=== PATIENT | female | born 1965 | race Caucasian/White ===

== ENCOUNTER 2021-02-03 14:57 | Emergency (ER) | payer OTHER, SELFPAY ==
--- NOTE | ~2021-02-03 | XR_ITS ---
EXAMINATION: XR CHEST CLINICAL INFORMATION: [facility] COMPARISON: 07/16/2018 TECHNIQUE: Frontal view of the chest was obtained. FINDINGS: EKG leads project over the chest. No focal consolidation, pleural effusion or pneumothorax. Heart size is normal. No acute osseous abnormality. XR/XR chest 1V IMPRESSION: No acute pulmonary process.
[2021-02-03 15:35] VITALS: BP 187/99; PULSE 67; RESP 16; O2SAT 98; BMI 27.4
--- NOTE | 2021-02-03 15:40 | ECG_ITS ---
Test Reason : HIGH BOOLD PRESSURE Blood Pressure : / mmHG Vent. Rate : 065 BPM Atrial Rate : 065 BPM P-R Int : 168 ms QRS Dur : 108 ms QT Int : 408 ms P-R-T Axes : 043 013 029 degrees QTc Int : 424 ms Normal sinus rhythm Incomplete right bundle branch block Borderline ECG When compared with ECG of 16-JUL-2018 13:57, No significant change was found Referred By: Generic ED Physician Electronically Signed By:HAYLIE PARRA
--- NOTE | 2021-02-03 17:07 | ED_ITS ---
HPI - General Adult General Chief complaint: General Medical Stated complaint: HIGH BP Time Seen by Provider: 02/03/21 17:07 Source: patient Mode of arrival: ambulatory Limitations: no limitations History of Present Illness HPI narrative: 55-year-old female with below noted past medical history presenting complaint of states pain in the left lower side of the neck that is positional has been more secondary to working from home and postural on a computer all day. States hurts with certain movements and also had some radiation to the right chest area which made her concerned. States having on for past couple days. Otherwise no recent illness, travel, lower extremity pain or swelling. Onset (ago): day(s) Severity: mild Quality: aching Pain Consistency: intermittent Relieving factors: cold therapy and movement Exacerbating factors: none Treatments prior to arrival: none Related Data Previous Rx's Medication Instructions Recorded azithromycin 250 mg tablet See Rx Instructions PO .COMPLEX #6 01/13/21 tab Allergies Allergy/AdvReac Type Severity Reaction Status Date / Time SEASONAL ALLERGIES Allergy Mild ITCHY Uncoded 07/14/20 16:35 EYES, RUNNY NOSE Review of Systems Review of Systems: Constitutional: No Weight loss, No Fever, No Chills, No Night Sweats, No Fatigue, No Malaise ENT/Mouth: No Hearing loss, No Ear Pain, No Nasal Congestion, No Sinus Pain, No Hoarseness, No sore throat, No Rhinorrhea, No Swallowing Difficulty Eyes: No Eye Pain, No Swelling, No Redness, No Foreign Body, No Discharge, No Vision Changes Cardiovascular: + Chest Pain, No SOB, No Dyspnea on Exertion, No Orthopnea, No Edema, No Palpitations Respiratory: No Cough, No Sputum, No Wheezing, No Smoke Exposure, No Dyspnea Gastrointestinal: No Nausea, No Vomiting, No Diarrhea, No Constipation, No abdominal Pain, No Hematochezia, No Melena Genitourinary: No Dysuria, No Urinary Frequency, No Hematuria, No Urinary Incontinence, No Urgency, No Flank Pain, No Urinary Flow Changes, No Hesitancy Musculoskeletal: No joint pain, No Myalgias, No Joint Swelling Skin: No Skin Lesions, No rash Neuro: No Weakness, No Numbness, No Paresthesias, No Loss of Consciousness, No Dizziness, No Headache Psych: No Social Issues Heme/Lymph: No Bruising, No Bleeding,No Lymphadenopathy Endocrine: No Polyuria, No Polydipsia, No Temperature Intolerance PMFSH Past Medical History Surgical History (Updated 02/03/21 @ 15:38 by Kamran Jaeger) Hx of tubal ligation Social History Social History Smoking Status: Never smoker Use of substances other than those prescribed or required for medical reasons: No Advance Directives: No Advance Directives Information Provided: No Physical Exam Vital Signs: Vital Signs: Last Vital Signs Temp 97.9 F 02/03/21 17:08 Pulse 67 02/03/21 18:25 Resp 16 02/03/21 18:25 BP 149/86 H 02/03/21 18:25 Pulse Ox 99 02/03/21 18:25 Body Mass Index 27.4 Reviewed Const: General: cooperative and healthy appearing; No acute distress or intoxicated appearing Nutritional Appearance: average body habitus Orientation/consciousness: patient oriented x3 HENMT: Head: Yes normal to inspection Ears: hearing grossly normal bilaterally Eyes: General: appearance normal, both eyes and all related structures Visual Hdez: normal visual hdez by confrontation Neck: Neck: Yes normal visual inspection, No positive Brudzinski's sign, No positive Kernig's sign and No tender Thyroid: Thyroid normal Chest: Chest palpation & inspection: normal inspection of the chest and tenderness pectoral muscle and costochondral junction Resp: Effort & Inspection: normal respiratory effort Auscultation: clear to auscultation bilaterally Cardio: Jugular venous distension: no JVD Rhythm: regular rhythm Heart sounds: S1 normal heart sound present and S2 normal heart sound present GI: Inspection: Yes normal to inspection Palpation (GI): Soft to palpation Percussion: Yes normal to percussion Auscultation: normal bowel sounds : General: Yes no CVA tenderness Back/Spine/Pelvis: Back: no CVA tenderness Skin: General skin exam: no rashes or lesions noted Neuro: General: patient oriented x3 Extrem: General: Yes normal to inspection Course Reevaluation(s) Reevaluation #1: AP consistent with cervical radiculopathy from cervical muscle irritation and pectoral muscle involvement from likely being in 1 position all day on the computer. Pain reproducible on exam. Otherwise no focal neurological findings strings, reflexes wnl. Nondiagnostic. Will discharge home with short course naproxen, follow-up, return, home instructions. Verbalizing chambers stable for discharge. Medical Decision Making Lab Data Result diagrams: 02/03/21 18:04 02/03/21 18:04 Labs: Lab Results 02/03/21 02/03/21 02/03/21 Range/Units 18:03 18:04 18:04 WBC 4.7 L (4.8-10.8) X10*3/uL RBC 4.57 (4.20-5.50) X10*6/uL Hgb 13.0 (12.0-16.0) g/dl Hct 40.4 (37-47) % MCV 88.4 (80-98) fL MCH 28.4 (27.0-33.0) pg MCHC 32.2 (31.0-35.0) g/dl RDW 13.2 (11.0-16.0) % Plt Count 217 (160-400) X10*3/uL MPV 10.4 (9.4-12.3) fL Immature Gran % (Auto) 0.2 (0.0-0.4) % Neut % (Auto) 65.3 (45-73) % Lymph % (Auto) 25.4 (20-40) % [place] % (Auto) 6.8 (2-11) % Eos % (Auto) 1.7 (0-4) % Baso % (Auto) 0.6 (0-2) % Lymph # (Auto) 1.2 (1.2-4.9) X10*3/uL [place] # (Auto) 0.3 (0.1-1.2) X10*3/uL Eos # (Auto) 0.1 (0.0-0.4) X10*3/uL Baso # (Auto) 0.0 (0.0-0.2) X10*3/uL Abs Immat Gran (auto) 0.01 (0.00-0.03) X10*3/uL Absolute Neuts (auto) 3.1 (2.0-8.3) X10*3/uL Absolute Nucleated RBC 0.000 (0.0-0.012) X10*3/uL Nucleated RBC % (auto) 0.0 (0.0-0.2) /100WBC PT 12.2 (10.8-13.0) SEC INR 1.0 (0.9-1.1) APTT 34.7 (24.1-38.0) SEC Sodium (135-145) mmol/L Potassium (3.3-5.1) mmol/L Chloride (96-108) mmol/L Carbon Dioxide (22-29) mmol/L Anion Gap (12-20) BUN (9-16) mg/dL Creatinine (0.5-1.4) mg/dL Estim Creat Clear Calc Estimated GFR Random Glucose (60-115) mg/dL Calcium (8.4-10.2) mg/dL Total Bilirubin (0.0-1.0) mg/dL AST (5-31) U/L ALT (0-31) U/L Alkaline Phosphatase (39-117) U/L Troponin I High Sens (<3.5-17.0) ng/L Total Protein (6.5-8.0) g/dL Albumin (3.5-5.0) g/dL Urine Color YELLOW Urine Appearance CLEAR Urine pH 7.0 (5.0-8.0) Ur Specific [place] 1.010 (1.005-1.025) Urine Protein NEG (NEG-TRACE) MG/DL Urine Glucose (UA) NEG (NEG) MG/DL Urine Ketones NEG (NEG) MG/DL Urine Blood TRACE (NEG) Urine Nitrite NEG (NEG) Ur Leukocyte Esterase NEG (NEG) 02/03/21 02/03/21 Range/Units 18:04 18:04 WBC (4.8-10.8) X10*3/uL RBC (4.20-5.50) X10*6/uL Hgb (12.0-16.0) g/dl Hct (37-47) % MCV (80-98) fL MCH (27.0-33.0) pg MCHC (31.0-35.0) g/dl RDW (11.0-16.0) % Plt Count (160-400) X10*3/uL MPV (9.4-12.3) fL Immature Gran % (Auto) (0.0-0.4) % Neut % (Auto) (45-73) % Lymph % (Auto) (20-40) % [place] % (Auto) (2-11) % Eos % (Auto) (0-4) % Baso % (Auto) (0-2) % Lymph # (Auto) (1.2-4.9) X10*3/uL [place] # (Auto) (0.1-1.2) X10*3/uL Eos # (Auto) (0.0-0.4) X10*3/uL Baso # (Auto) (0.0-0.2) X10*3/uL Abs Immat Gran (auto) (0.00-0.03) X10*3/uL Absolute Neuts (auto) (2.0-8.3) X10*3/uL Absolute Nucleated RBC (0.0-0.012) X10*3/uL Nucleated RBC % (auto) (0.0-0.2) /100WBC PT (10.8-13.0) SEC INR (0.9-1.1) APTT (24.1-38.0) SEC Sodium 142 (135-145) mmol/L Potassium 3.8 (3.3-5.1) mmol/L Chloride 107 (96-108) mmol/L Carbon Dioxide 29 (22-29) mmol/L Anion Gap 10 L (12-20) BUN 10 (9-16) mg/dL Creatinine 0.88 (0.5-1.4) mg/dL Estim Creat Clear Calc 72.3 Estimated GFR > 60 Random Glucose 81 (60-115) mg/dL Calcium 9.0 (8.4-10.2) mg/dL Total Bilirubin 0.5 (0.0-1.0) mg/dL AST 20 (5-31) U/L ALT 17 (0-31) U/L Alkaline Phosphatase 92 (39-117) U/L Troponin I High Sens < 3.5 (<3.5-17.0) ng/L Total Protein 7.3 (6.5-8.0) g/dL Albumin 4.4 (3.5-5.0) g/dL Urine Color Urine Appearance Urine pH (5.0-8.0) Ur Specific [place] (1.005-1.025) Urine Protein (NEG-TRACE) MG/DL Urine Glucose (UA) (NEG) MG/DL Urine Ketones (NEG) MG/DL Urine Blood (NEG) Urine Nitrite (NEG) Ur Leukocyte Esterase (NEG) Imaging Data Chest x-ray: Radiologist's impression: [address] [id number] ReportSigned Patient: Diana VegaR#: [id number]: 1965Acct:[id number]/Sex: 55 / FADM Date: 02/03/21Loc: HO.EDAttending Dr: Ordering Physician: Clovis Clay NP Date of Service: 02/03/21 Procedure(s): XR chest 1V Accession Number(s): [id number] cc: Clovis Clay [employer]N~ EXAMINATION: XR CHEST CLINICAL INFORMATION: [facility] COMPARISON: 07/16/2018 TECHNIQUE: Frontal view of the chest was obtained. FINDINGS: EKG leads project over the chest. No focal consolidation, pleural effusion or pneumothorax. Heart size is normal. No acute osseous abnormality. XR/XR chest 1V IMPRESSION: No acute pulmonary process. 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 Instructor: SB ECG Data Interpretation: Normal sinus rhythm Incomplete right bundle branch block Borderline ECG When compared with ECG of 16-JUL-2018 13:57, No significant change was found Discharge Plan Discharge Clinical Impression: Cervical radiculopathy, Atypical chest pain Patient Disposition: Home, Self-Care Instructions: Chest Pain (ED), Cervical Radiculopathy (ED) Additional Instructions: Gentle stretching Warm compresses Naproxen [id number] Regular exercise and posturing Return if any concerns worsening symptoms otherwise follow-up as instructed Thank you Prescriptions: No Action azithromycin 250 mg tablet See Rx Instructions PO .COMPLEX Qty: 6 RF: 0 Referrals: Sonia Paris MD [Primary Care Provider] - 5 days
[2021-02-03 17:08] VITALS: BP 148/71; PULSE 64; RESP 16; TEMP 36.6; O2SAT 99
[2021-02-03 18:04] VITALS: BP 150/70; PULSE 60; RESP 14; O2SAT 98
[2021-02-03 18:11] LABS: MANUAL DIFF FLAG NO
[2021-02-03 18:15] LABS: Basophils Percent Auto 0.6 % (0-2); Eosinophils Absolute Auto 0.1 X10*3/uL (0.0-0.4); Eosinophils Percent Auto 1.7 % (0-4); Hematocrit 40.4 % (37-47); Imm Gran Abs Auto 0.01 X10*3/uL (0.00-0.03); Imm Gran Pct Auto 0.2 % (0.0-0.4); Lymphocytes Absolute Auto 1.2 X10*3/uL (1.2-4.9); Lymphocytes Percent Auto 25.4 % (20-40); Mean Corpuscular HGB Conc 32.2 g/dl (31.0-35.0); Mean Corpuscular Hemoglobin 28.4 pg (27.0-33.0); Mean Corpuscular Volume 88.4 fL (80-98); Mean Platelet Volume 10.4 fL (9.4-12.3); Monocytes Absolute Auto 0.3 X10*3/uL (0.1-1.2); Monocytes Percent Auto 6.8 % (2-11); Neutrophils Absolute Auto 3.1 X10*3/uL (2.0-8.3); Neutrophils Percent Auto 65.3 % (45-73); Platelet Count 217 X10*3/uL (160-400); Red Blood Count 4.57 X10*6/uL (4.20-5.50); Red Cell Distribution Width 13.2 % (11.0-16.0); White Blood Count 4.7 X10*3/uL (4.8-10.8)
[2021-02-03 18:17] LABS: Glucose Urine UA NEG (NEG); Leukocyte Esterase Urine NEG (NEG); Nitrite Urine NEG (NEG); Urine Blood TRACE (NEG); Urine Ketones NEG (NEG); Urine Protein NEG (NEG-TRACE)
[2021-02-03 18:20] LABS: Prothrombin Time 12.2 SEC (10.8-13.0)
[2021-02-03 18:22] LABS: Partial Thromboplastin Time 34.7 SEC (24.1-38.0)
[2021-02-03 18:22] LABS: Appearance Urine CLEAR; Color Urine YELLOW
[2021-02-03 18:25] VITALS: BP 149/86; PULSE 67; RESP 16; O2SAT 99
[2021-02-03 18:36] LABS: Alanine Aminotransferase 17 U/L (0-31); Albumin Level 4.4 g/dL (3.5-5.0); Alkaline Phosphatase 92 U/L (39-117); Anion Gap 10 (12-20); Aspartate Amino Transferase 20 U/L (5-31); Bilirubin Total 0.5 mg/dL (0.0-1.0); Blood Urea Nitrogen 10 mg/dL (9-16); Carbon Dioxide 29 mmol/L (22-29); Chloride 107 mmol/L (96-108); Creatinine Clr Calc Pharmacy 72.3; Estimated Glomerular Filt Rate > 60; Glucose Random 81 mg/dL (60-115); Potassium 3.8 mmol/L (3.3-5.1); Sodium 142 mmol/L (135-145); Total Protein 7.3 g/dL (6.5-8.0)
[2021-02-03 18:41] LABS: Troponin-I High Sensitivity < 3.5 ng/L (<3.5-17.0)
[2021-02-03 19:04] LABS: RBC Urine 0 /HPF (0); Squamous Epithelial Cell Urine TRACE /LPF; WBC Urine 0 /HPF (0-4)
== END 2021-02-03 19:21 | disposition home or self-care (01) ==
PROVIDERS: Nurse Practitioner Primary Care; Emergency Provider Internal Medicine; PCP Internal Medicine
DX: R07.89 Other chest pain (principal); M54.12 Radiculopathy, cervical region
CPT/HCPCS: 36415; 71045; 80053; 81001; 84484; 85025; 85610; 85730; 93005; 99283; 99284

== ENCOUNTER 2021-12-01 13:36 | Emergency (ER) | payer OTHER, SELFPAY ==
--- NOTE | 2021-12-01 | ECG_ITS ---
Test Reason : left arm pain Blood Pressure : / mmHG Vent. Rate : 071 BPM Atrial Rate : 071 BPM P-R Int : 166 ms QRS Dur : 098 ms QT Int : 374 ms P-R-T Axes : 034 012 006 degrees QTc Int : 406 ms Normal sinus rhythm Nonspecific T wave abnormality Abnormal ECG When compared to the previous EKG of No significant changes seen Referred By: Generic ED Physician Electronically Signed By:Rom Mortensen
[2021-12-01 14:04] VITALS: BP 162/91; PULSE 81; RESP 18; TEMP 36.8; O2SAT 100; BMI 26.6
--- NOTE | 2021-12-01 15:10 | ED_ITS ---
HPI - Dizziness General Chief Complaint: Dizziness Stated Complaint: Faint feels like passing out Time Seen by Provider: 12/01/21 14:57 Source: patient Mode of arrival: ambulatory Limitations: no limitations History of Present Illness HPI Narrative: 56-year-old female here with reports of dizziness which she noticed today. Patient tells me she stood up to make something to eat this morning at home and after standing she felt lightheaded like she might pass out. Patient tells me she called her mom and her mom and dad came to pick her. She tells me that she went to her parent's house and they made her something for lunch. After eating she went to stand up and again had a 2nd episode of feeling lightheaded like she was going to pass out. Patient tells me she has no episodes that occur at rest. No episodes occur with head movement. No recent illnesses. No reports of headache, vision changes, vomiting, chest pain, shortness of breath. Related Data Home Medications Medication Instructions Recorded Confirmed No Known Home Meds 11/23/21 11/23/21 Allergies Allergy/AdvReac Type Severity Reaction Status Date / Time SEASONAL ALLERGIES Allergy Mild ITCHY Uncoded 11/23/21 14:15 EYES, RUNNY NOSE Review of Systems Verdana 4l Review of Systems: Yes all other systems are reviewed and Verdana 4d are negative Verdana 4l Constitutional: Verdana 4d Constitutional: Verdana 4d Verdana 4d Reports no additional constitutional complaints, Denies body ache(s), Denies chills, Denies fever(s), Denies headache(s) and Denies weakness Verdana 4l Eyes: Verdana 4d Verdana 4d Eyes: Verdana 4d Reports no additional eye complaints and Denies change in vision Verdana 4l ENT: Verdana 4d Reports system reviewed and no additional complaints, except as documented, Reports dizziness, Denies headache(s), Denies nasal congestion, Denies nasal discharge and Denies neck pain Verdana 4l Cardiovascular: Verdana 4d Cardiovascular: Verdana 4d Verdana 4d Reports no additional cardiovascular complaints, Denies chest pain, Denies leg edema and Denies dyspnea Verdana 4l Respiratory: Verdana 4d Verdana 4d Respiratory: Verdana 4d Reports no additional respiratory complaints, Denies cough and Denies dyspnea Verdana 4l Gastrointestinal: Verdana 4d Gastrointestinal: Verdana 4d Verdana 4d Reports no additional gastrointestinal complaints, Denies abdominal pain, Denies diarrhea, Denies nausea and Denies vomiting Verdana 4l Genitourinary: Verdana 4d Verdana 4d Genitourinary: Verdana 4d Reports no additional female genitourinary complaints and Denies urinary incontinence Verdana 4l Musculoskeletal: Verdana 4d Musculoskeletal: Verdana 4d Verdana 4d Reports no additional musculoskeletal complaints, Denies back pain, Denies arthralgias, Denies joint swelling, Denies neck pain, Denies numbness and Denies tingling Verdana 4l Integumentary/Breasts: Verdana 4d Skin/Breast: Verdana 4d Verdana 4d Reports system reviewed and no additional complaints, except as docu and Denies rash Verdana 4l Neurologic: Verdana 4d Reports system reviewed and no additional complaints, except as documented, Denies Abnormal speech present, Reports dizziness, Denies headache(s), Denies numbness, Denies tingling and Denies weakness PMFSH Past Medical History Attestation statement: The following information was validated with the patient. Source: old records reviewed and nursing notes reviewed Medical History Blood pressure elevated without history of HTN Physical exam Surgical History Hx of tubal ligation Family History Family History Mother Pulmonary fibrosis Hypertension Father Hypertension Social History Social History Housing: House Alcohol intake: never Patient Tobacco Use Status: Never used Tobacco e-Cigarette/Vaping Use: Never Used Second Hand Smoke Exposure: No Use of substances other than those prescribed or required for medical reasons: No Advance Directives: No Advance Directives Information Provided: Yes Patient : No service: No Current occupational status: employed Current occupational exposures/hazards: No Physical Exam Verdana 4l Vital Signs: Verdana 4d Verdana 4d Vital Signs: Verdana 4d Verdana 4Bd Last Vital Signs Verdana 4d Code Enforcement Supervisor New 4d Code Enforcement Supervisor New 4d Temp 98.2 F 12/01/21 14:04 Code Enforcement Supervisor New 4d Pulse 67 12/01/21 15:24 Code Enforcement Supervisor New 4d Resp 18 12/01/21 14:04 BP 154/88 H 12/01/21 15:24 Pulse Ox 100 12/01/21 14:04 BMI result Body Mass Index 26.6 Const: General: cooperative, healthy appearing, comfortable and no acute distress Orientation/consciousness: patient oriented x3 Limitations: no limitations HENMT: Head: Yes normal to inspection Ears: hearing grossly normal bilaterally and TM's normal bilaterally General nose exam: Normal external nose present Face and sinus: Yes normal facial exam Mouth: Normal oral and palatal mucosa present Throat: Yes posterior oropharynx normal, Yes tonsils normal and Yes uvula midline Eyes: General: appearance normal, both eyes and all related structures Pupils: Equal, round and reactive pupils present Neck: Neck: Yes normal visual inspection, Yes full ROM and Yes no lymphadenopathy Chest: Chest palpation & inspection: normal inspection of the chest Resp: Effort & Inspection: normal respiratory effort Auscultation: clear to auscultation bilaterally Cardio: Rate: regular rate Rhythm: regular rhythm Peripheral pulses: Peripheral pulses 2+ throughout GI: Inspection: Yes normal to inspection Palpation (GI): Soft to palpation and nontender Auscultation: normal bowel sounds Back/Spine/Pelvis: Thoracic/Lumbar Spine: thoracic and lumbar spine normal to inspection Skin: General skin exam: no rashes or lesions noted Neuro: General: patient oriented x3, no focal motor deficits and normal sensation to monofilament Cranial nerves: Yes CN's II-XII intact bilaterally, Yes Equal, round and reactive pupils present, Yes Bilaterally intact EOM present, Yes Nystagmus not present, Yes Normal facial strength present and Yes Midline tongue present Cognition (Neuro): normal cognition Speech: No Abnormal speech present Gait exam (Neuro): Normal gait present Motor exam (neuro): 5/5 motor strength present throughout Sensory Exam: Normal double simultaneous stimulation for sensation Coordination: [id number] test normal, [id number] test normal and tandem gait normal Extrem: General: Yes normal to inspection, Yes no pedal edema and Yes no calf tenderness Course Course Course Narrative: 56-year-old female here with reports of 2 episodes of feeling lightheaded which occurred with standing and resolved with rest. No other associated symptoms. Normal neurological exam. No deficits. Vitals are stable. Will check EKG, labs orthostatic vital sign 1630-EKG shows no new changes. Labs are unremarkable. Orthostatics show no change. The patient is mildly hypertensive but reports no headache or vision ch anges or vomiting. She tells me that she without a primary care doctor of several weeks ago and her blood pressure was mildly elevated and she has an appointment next week to go back to recheck her blood pressure and determine if she needs to be started on oral antihypertensive. She tells me that she recently started working out and eating more healthy and is trying to decrease her blood pressure without medication. She plans on following up next week with her primary. At this time I do not feel like we should initiate any oral antihypertensives until she sees them. Reviewed worrisome signs and symptoms of when to return to the emergency department. Comfortable discharge home. MDM - Dizziness MDM Narrative Medical decision making narrative: Orthostatic hypotension BPPV-PE not c/w ACS-less likely with unchanged EKG, flat trop CVA-less likely with intermittent symptoms, normal neurological exam Anemia Electrolyte abnormality Medical Records Attestation: I reviewed the patient's medical records. Lab Data Attestation: I reviewed the patient's lab results. Result diagrams: 12/01/21 15:31 12/01/21 15:31 Labs: Lab Results 12/01/21 12/01/21 12/01/21 Range/Units 15:31 15:31 15:31 WBC 5.2 (4.8-10.8) X10*3/uL RBC 4.56 (4.20-5.50) X10*6/uL Hgb 13.1 (12.0-16.0) g/dl Hct 40.1 (37.0-47.0) % MCV 87.9 (80.0-98.0) fL MCH 28.7 (27.0-33.0) pg MCHC 32.7 (31.0-35.0) g/dl RDW 13.2 (11.0-16.0) % Plt Count 223 (160-400) X10*3/uL MPV 10.6 (9.4-12.3) fL Immature Gran % (Auto) 0.2 (0.0-0.4) % Neut % (Auto) 76.5 H (45-73) % Lymph % (Auto) 15.3 L (20-40) % [place] % (Auto) 6.2 (2-11) % Eos % (Auto) 1.4 (0-4) % Baso % (Auto) 0.4 (0-2) % Lymph # (Auto) 0.8 L (1.2-4.9) X10*3/uL [place] # (Auto) 0.3 (0.1-1.2) X10*3/uL Eos # (Auto) 0.1 (0.0-0.4) X10*3/uL Baso # (Auto) 0.0 (0.0-0.2) X10*3/uL Abs Immat Gran (auto) 0.01 (0.00-0.03) X10*3/uL Absolute Neuts (auto) 4.0 (2.0-8.3) x10*3/uL Absolute Nucleated RBC 0.000 (0.0-0.012) X10*3/uL Nucleated RBC % (auto) 0.0 (0.0-0.2) /100WBC Sodium 140 (135-145) mmol/L Potassium 4.3 (3.3-5.1) mmol/L Chloride 106 (96-108) mmol/L Carbon Dioxide 28 (22-29) mmol/L Anion Gap 10 L (12-20) BUN 11 (9-16) mg/dL Creatinine 0.85 (0.5-1.4) mg/dL Estim Creat Clear Calc 72.9 Estimated GFR > 60 Random Glucose 98 (60-115) mg/dL Calcium 9.4 (8.4-10.2) mg/dL Magnesium 2.1 (1.6-2.6) mg/dL Total Bilirubin 0.4 (0.0-1.0) mg/dL Direct Bilirubin 0.2 (0.0-0.5) mg/dL AST 28 (5-31) U/L ALT 26 (0-31) U/L Alkaline Phosphatase 88 (39-117) U/L Troponin I High Sens < 3.5 (<3.5-17.0) ng/L Total Protein 7.0 (6.5-8.0) g/dL Albumin 4.2 (3.5-5.0) g/dL ECG Data Attestation: I personally reviewed and interpreted this ECG as follows: ECG interpretation date: 12/01/21 ECG interpretation time: 14:08 Interpretation: Normal sinus rhythm with a rate of 71, normal MN, normal QRS, normal QT Discharge Plan Discharge Clinical Impression: Dizziness, Hypertension Patient Disposition: Home, Self-Care Instructions: Hypertension (ED), Dizziness (ED) Additional Instructions: Follow-up with your primary care doctor as scheduled for a repeat blood pressure Your lab work and EKG are normal Eat small frequent meals throughout the day Drink lots of fluids Change positions slowly Prescriptions: No Action No Known Home Meds 0RF Referrals: Sonia Paris MD [Primary Care Provider] - 1 week
[2021-12-01 15:23] VITALS: BP 148/82; BP 164/90; PULSE 67
[2021-12-01 15:24] VITALS: BP 154/88; PULSE 67
[2021-12-01 15:37] LABS: MANUAL DIFF FLAG NO
[2021-12-01 15:40] LABS: Basophils Percent Auto 0.4 % (0-2); Eosinophils Absolute Auto 0.1 X10*3/uL (0.0-0.4); Eosinophils Percent Auto 1.4 % (0-4); Hematocrit 40.1 % (37.0-47.0); Hemoglobin 13.1 g/dl (12.0-16.0); Imm Gran Abs Auto 0.01 X10*3/uL (0.00-0.03); Imm Gran Pct Auto 0.2 % (0.0-0.4); Lymphocytes Absolute Auto 0.8 X10*3/uL (1.2-4.9); Lymphocytes Percent Auto 15.3 % (20-40); Mean Corpuscular HGB Conc 32.7 g/dl (31.0-35.0); Mean Corpuscular Hemoglobin 28.7 pg (27.0-33.0); Mean Corpuscular Volume 87.9 fL (80.0-98.0); Mean Platelet Volume 10.6 fL (9.4-12.3); Monocytes Absolute Auto 0.3 X10*3/uL (0.1-1.2); Monocytes Percent Auto 6.2 % (2-11); Neutrophils Percent Auto 76.5 % (45-73); Platelet Count 223 X10*3/uL (160-400); Red Blood Count 4.56 X10*6/uL (4.20-5.50); Red Cell Distribution Width 13.2 % (11.0-16.0); White Blood Count 5.2 X10*3/uL (4.8-10.8)
[2021-12-01 15:54] LABS: Alanine Aminotransferase 26 U/L (0-31); Albumin Level 4.2 g/dL (3.5-5.0); Alkaline Phosphatase 88 U/L (39-117); Anion Gap 10 (12-20); Aspartate Amino Transferase 28 U/L (5-31); Bilirubin Direct 0.2 mg/dL (0.0-0.5); Bilirubin Total 0.4 mg/dL (0.0-1.0); Blood Urea Nitrogen 11 mg/dL (9-16); Calcium 9.4 mg/dL (8.4-10.2); Carbon Dioxide 28 mmol/L (22-29); Chloride 106 mmol/L (96-108); Creatinine Clr Calc Pharmacy 72.9; Estimated Glomerular Filt Rate > 60; Glucose Random 98 mg/dL (60-115); Magnesium 2.1 mg/dL (1.6-2.6); Potassium 4.3 mmol/L (3.3-5.1); Sodium 140 mmol/L (135-145)
[2021-12-01 15:58] LABS: Troponin-I High Sensitivity < 3.5 ng/L (<3.5-17.0)
== END 2021-12-01 16:31 | disposition home or self-care (01) ==
PROVIDERS: Nurse Practitioner Family; Emergency Provider Emergency Medicine; PCP Internal Medicine
DX: R42 Dizziness and giddiness (principal); I10 Essential (primary) hypertension
CPT/HCPCS: 36415; 80048; 80076; 83735; 84484; 85025; 93005; 99283; 99284

== ENCOUNTER 2021-12-08 20:06 | Emergency (ER) | payer OTHER, SELFPAY ==
[2021-12-08 21:11] VITALS: BP 122/72; PULSE 58; RESP 16; O2SAT 98; BMI 27.8
--- NOTE | 2021-12-08 21:47 | ECG_ITS ---
Test Reason : ARM PAIN Blood Pressure : / mmHG Vent. Rate : 051 BPM Atrial Rate : 051 BPM P-R Int : 160 ms QRS Dur : 094 ms QT Int : 422 ms P-R-T Axes : 030 017 002 degrees QTc Int : 388 ms Sinus bradycardia Nonspecific T wave abnormality Abnormal ECG When compared with ECG of 01-DEC-2021 14:08, No significant change was found Referred By: Brianna Zhou Electronically Signed By:Rom Mortensen
--- NOTE | 2021-12-08 22:17 | ED.GENADULT ---
HPI - General Adult General Chief complaint: General Medical Stated complaint: high BP Time Seen by Provider: 12/08/21 21:26 Source: patient Mode of arrival: ambulatory History of Present Illness HPI narrative: 56-year-old female with a past medical history of Lyme disease, HTN started on Lisinopril yesterday and Clonidine added today by PCP, presenting to ED complaining of continued elevated BP at home. States home blood pressures were in 180's. Reports left shoulder pain yesterday into today improved/resolved at present also with increased anxiety surrounded by elevated BP's. Denies CP at present, denies SOB, headache, numbness/tingling/weakness Onset (ago): day(s) Related Data Previous Rx's Medication Instructions Recorded blood pressure monitor #1 ea 12/07/21 lisinopril 2.5 mg tablet 2.5 mg PO DAILY #30 tab 12/07/21 clonidine HCl 0.1 mg tablet 0.1 mg PO BID #30 tab 12/08/21 Allergies Allergy/AdvReac Type Severity Reaction Status Date / Time SEASONAL ALLERGIES Allergy Mild ITCHY Uncoded 12/07/21 15:47 EYES, RUNNY NOSE Review of Systems Review of Systems: Constitutional: No Fever, No Chills, No Fatigue, No Malaise ENT/Mouth: No Ear Pain, No Nasal Congestion, No sore throat, No Rhinorrhea, No Swallowing Difficulty Eyes: No Eye Pain, No Swelling, No Redness, No Vision Changes Cardiovascular: No Chest Pain, No SOB, No Dyspnea on Exertion, No Edema, No Palpitations Respiratory: No Cough, No Sputum, No Dyspnea Gastrointestinal: No Nausea, No Vomiting, No Diarrhea, No Constipation, No Abdominal pain Genitourinary: No Dysuria, No Hematuria, No Flank Pain Musculoskeletal: Left shoulder pain (resolved), No Myalgias, No Joint Swelling Skin: No Skin Lesions, No rash Neuro: No Weakness, No Numbness, No Paresthesias, No Dizziness, No Headache Yes all other systems are reviewed and are negative [facility] Past Medical History Attestation statement: The following information was validated with the patient. Medical History Blood pressure elevated without history of HTN History of Lyme disease Physical exam Surgical History Hx of tubal ligation Family History Family History Mother Pulmonary fibrosis Hypertension Father Hypertension Social History Social History Housing: House Alcohol intake: never Patient Tobacco Use Status: Never used Tobacco e-Cigarette/Vaping Use: Never Used Second Hand Smoke Exposure: No Advance Directives: No Advance Directives Information Provided: Yes service: No Current occupational status: employed Current occupational exposures/hazards: No Cognitive needs: No Hearing needs: No Vision needs: Yes (Glasses) Physical Exam ED Vital Signs: Vital Signs - 24 hr 12/08/21 21:11 Pulse Rate 58 Respiratory Rate 16 Blood Pressure 122/72 Pulse Oximetry 98 BMI result Body Mass Index 27.8 Const General: cooperative, healthy appearing, no acute distress and anxious Orientation/consciousness: patient oriented x3 Limitations: no limitations HENMT Head: Yes normal to inspection and Yes atraumatic Ears: hearing grossly normal bilaterally General nose exam: Normal external nose present Face and sinus: Yes normal facial exam Eyes General: appearance normal, both eyes and all related structures EOM: EOMs intact bilaterally Neck Neck: Yes normal visual inspection and Yes no meningeal signs Resp Effort & Inspection: normal respiratory effort and no respiratory distress Auscultation: clear to auscultation bilaterally Cardio Rate: regular rate Heart sounds: S1 normal heart sound present and S2 normal heart sound present GI Inspection: Yes normal to inspection Skin Rashes: no rashes Wounds: no wounds Neuro General: patient oriented x3, gait normal, moves all extremities and no meningeal signs Gait exam (Neuro): Normal gait present Extrem General: Yes normal to inspection Medical Decision Making MDM Narrative Medical decision making narrative: 56-year-old female with a past medical history of Lyme disease, HTN started on Lisinopril yesterday and Clonidine added today by PCP, presenting to ED complaining of continued elevated BP at home. On exam normotensive, NAD, lungs CTA. Discussed with patient importance of compliance with newly prescribed medications, and timing of taking BP after taking p.o. meds Discussed worrisome signs and symptoms and strict return precautions and need close follow-up with PCP, she verbalized understanding and feels safe for discharge home Medical Records Medical records reviewed: Yes I reviewed the patient's medical records. Lab Data Lab results reviewed: Yes I reviewed the patient's lab results. Discharge Plan Discharge Clinical Impression: Hypertension, Well adult health check Patient Disposition: Home, Self-Care Instructions: Hypertension (ED), Heart Healthy Diet (ED), How to Take a Blood Pressure (ED) Additional Instructions: Continue taking newly prescribed hypertension medications. Take your blood pressure 1 to 2 hours after taking oral medications Take blood pressure in both arms Week sure you follow-up with her doctor If you develop chest pain, shortness of breath, headache, lightheadedness/dizziness or weakness please return to the ED Prescriptions: No Action (DME) blood pressure monitor Kit See Rx Instructions .Route Qty: 1 0RF Rx Instructions: As directed lisinopril 2.5 mg tablet 2.5 mg PO DAILY Qty: 30 0RF clonidine HCl 0.1 mg tablet 0.1 mg PO BID Qty: 30 0RF Referrals: Sonia Paris MD [Primary Care Provider] - 3 days
== END 2021-12-08 22:43 | disposition home or self-care (01) ==
PROVIDERS: Emergency Provider Internal Medicine; PCP Internal Medicine
DX: I10 Essential (primary) hypertension (principal)
CPT/HCPCS: 93005; 99283

== ENCOUNTER 2021-12-11 13:08 | Emergency (ER) | payer OTHER, SELFPAY ==
--- NOTE | ~2021-12-11 | XR_ITS ---
EXAMINATION: XR CHEST CLINICAL INFORMATION: Left shoulder/chest pain COMPARISON: Previous chest x-ray most recent January 2021 TECHNIQUE: Frontal view of the chest was obtained. FINDINGS: The cardiac and mediastinal contours are stable. There is minimal subsegmental atelectasis left lung base. The lungs are otherwise clear. There is no pleural effusion or pneumothorax. Bony structures are normal. XR/XR chest 1V IMPRESSION: Subsegmental atelectasis at the lung bases.
[2021-12-11 14:29] VITALS: BP 144/72; PULSE 54; RESP 17; TEMP 36.5; O2SAT 99; BMI 26.6
--- NOTE | 2021-12-11 14:41 | ECG_ITS ---
Test Reason : CP Blood Pressure : / mmHG Vent. Rate : 048 BPM Atrial Rate : 048 BPM P-R Int : 162 ms QRS Dur : 100 ms QT Int : 416 ms P-R-T Axes : 017 020 010 degrees QTc Int : 371 ms Sinus bradycardia Otherwise normal ECG When compared with ECG of 08-DEC-2021 21:49, No significant change was found Referred By: Generic ED Physician Electronically Signed By:TROY CASTRO MD
[2021-12-11 15:00] LABS: MANUAL DIFF FLAG NO
[2021-12-11 15:04] LABS: Basophils Percent Auto 0.4 % (0-2); Eosinophils Absolute Auto 0.1 X10*3/uL (0.0-0.4); Eosinophils Percent Auto 2.2 % (0-4); Hematocrit 36.3 % (37.0-47.0); Hemoglobin 11.7 g/dl (12.0-16.0); Imm Gran Abs Auto 0.02 X10*3/uL (0.00-0.03); Imm Gran Pct Auto 0.4 % (0.0-0.4); Lymphocytes Absolute Auto 1.2 X10*3/uL (1.2-4.9); Lymphocytes Percent Auto 24.1 % (20-40); Mean Corpuscular HGB Conc 32.2 g/dl (31.0-35.0); Mean Corpuscular Hemoglobin 28.6 pg (27.0-33.0); Mean Corpuscular Volume 88.8 fL (80.0-98.0); Mean Platelet Volume 10.7 fL (9.4-12.3); Monocytes Absolute Auto 0.4 X10*3/uL (0.1-1.2); Monocytes Percent Auto 7.8 % (2-11); Neutrophils Absolute Auto 3.2 x10*3/uL (2.0-8.3); Neutrophils Percent Auto 65.1 % (45-73); Platelet Count 173 X10*3/uL (160-400); Red Blood Count 4.09 X10*6/uL (4.20-5.50); Red Cell Distribution Width 13.2 % (11.0-16.0); White Blood Count 4.9 X10*3/uL (4.8-10.8)
[2021-12-11 15:14] LABS: Anion Gap 9 (12-20); Blood Urea Nitrogen 17 mg/dL (9-16); Calcium 9.5 mg/dL (8.4-10.2); Carbon Dioxide 28 mmol/L (22-29); Chloride 107 mmol/L (96-108); Creatinine Clr Calc Pharmacy 71.1; Estimated Glomerular Filt Rate > 60; Glucose Random 95 mg/dL (60-115); Potassium 4.3 mmol/L (3.3-5.1); Sodium 140 mmol/L (135-145)
[2021-12-11 15:20] LABS: Troponin-I High Sensitivity < 3.5 ng/L (<3.5-17.0)
[2021-12-11 17:23] VITALS: BP 140/70; PULSE 59; RESP 14; TEMP 36.8; O2SAT 97
--- NOTE | 2021-12-11 18:05 | ED_ITS ---
HPI - General Adult General Chief complaint: General Medical Stated complaint: high bp Time Seen by Provider: 12/11/21 18:05 Source: patient Mode of arrival: ambulatory Limitations: no limitations History of Present Illness HPI narrative: Patient with new diagnosis of hypertension seen by a nurse practitioner on 12/07 started on lisinopril 2.5 blood pressure was still high so started on clonidin twice daily patient been feeling lightheaded on arrival patient blood pressure was 127/60 earlier today blood pressure was in 200 range. Related Data Previous Rx's Medication Instructions Recorded blood pressure monitor #1 ea 12/07/21 lisinopril 2.5 mg tablet 2.5 mg PO DAILY #30 tab 12/07/21 clonidine HCl 0.1 mg tablet 0.1 mg PO BID #30 tab 12/08/21 Allergies Allergy/AdvReac Type Severity Reaction Status Date / Time SEASONAL ALLERGIES Allergy Mild ITCHY Uncoded 12/07/21 15:47 EYES, RUNNY NOSE Review of Systems Review of Systems: Yes all other systems are reviewed and are negative [facility] Past Medical History Medical History Blood pressure elevated without history of HTN History of Lyme disease Physical exam Surgical History Hx of tubal ligation Family History Family History Mother Pulmonary fibrosis Hypertension Father Hypertension Social History Social History Housing: House Alcohol intake: never Patient Tobacco Use Status: Never used Tobacco e-Cigarette/Vaping Use: Never Used Second Hand Smoke Exposure: No Use of substances other than those prescribed or required for medical reasons: No Advance Directives: No Advance Directives Information Provided: No service: No Current occupational status: employed Current occupational exposures/hazards: No Cognitive needs: No Hearing needs: No Vision needs: Yes (Glasses) Physical Exam ED Vital Signs: Vital Signs - 24 hr 12/11/21 14:29 12/11/21 17:23 Temperature 97.7 F 98.2 F Pulse Rate 54 59 Respiratory Rate 17 14 Blood Pressure 144/72 H 140/70 H Pulse Oximetry 99 97 BMI result Body Mass Index 26.6 Appearance: Alert. Oriented X3. No acute distress. Eyes: PERRLA, No Nystagmus ENT: Pharynx normal. Oral Mucosa moist Neck: Normal inspection. Neck supple. CVS: Normal heart rate and rhythm. Pulses normal. Respiratory: No respiratory distress. Equal air entry bilateral, no wheezing/rales/rhonchi Abdomen: Soft and nontender. Bowel sounds are present, no mass palpable, no CVA tenderness Skin: Skin warm and dry. Normal skin color. Normal skin turgor. Extremities: No lower extremity edema. No calf tenderness Neuro: Oriented X 3. No motor deficit. No sensory deficit.No cerebellar signs , cranial nerves II-XII intact Medical Decision Making MDM Narrative Medical decision making narrative: Patient with newly diagnosis of hypertension started on lisinopril last week and added clonidine within 2 days of starting the lisinopril patient blood pressure fluctuating on arrival blood pressure was 127/62 labs are stable will discontinue clonidine advised patient to increase the dose of lisinopril to 5 mg once daily and to increase to 10 mg if blood pressure continues to be high Lab Data Result diagrams: 12/11/21 14:55 12/11/21 14:55 Labs: Lab Results 12/11/21 12/11/21 12/11/21 Range/Units 14:55 14:55 14:55 WBC 4.9 (4.8-10.8) X10*3/uL RBC 4.09 L (4.20-5.50) X10*6/uL Hgb 11.7 L (12.0-16.0) g/dl Hct 36.3 L (37.0-47.0) % MCV 88.8 (80.0-98.0) fL MCH 28.6 (27.0-33.0) pg MCHC 32.2 (31.0-35.0) g/dl RDW 13.2 (11.0-16.0) % Plt Count 173 (160-400) X10*3/uL MPV 10.7 (9.4-12.3) fL Immature Gran % (Auto) 0.4 (0.0-0.4) % Neut % (Auto) 65.1 (45-73) % Lymph % (Auto) 24.1 (20-40) % Gillespie % (Auto) 7.8 (2-11) % Eos % (Auto) 2.2 (0-4) % Baso % (Auto) 0.4 (0-2) % Lymph # (Auto) 1.2 (1.2-4.9) X10*3/uL Gillespie # (Auto) 0.4 (0.1-1.2) X10*3/uL Eos # (Auto) 0.1 (0.0-0.4) X10*3/uL Baso # (Auto) 0.0 (0.0-0.2) X10*3/uL Abs Immat Gran (auto) 0.02 (0.00-0.03) X10*3/uL Absolute Neuts (auto) 3.2 (2.0-8.3) x10*3/uL Absolute Nucleated RBC 0.000 (0.0-0.012) X10*3/uL Nucleated RBC % (auto) 0.0 (0.0-0.2) /100WBC Sodium 140 (135-145) mmol/L Potassium 4.3 (3.3-5.1) mmol/L Chloride 107 (96-108) mmol/L Carbon Dioxide 28 (22-29) mmol/L Anion Gap 9 L (12-20) BUN 17 H D (9-16) mg/dL Creatinine 0.87 (0.5-1.4) mg/dL Estim Creat Clear Calc 71.1 Estimated GFR > 60 Random Glucose 95 (60-115) mg/dL Calcium 9.5 (8.4-10.2) mg/dL Troponin I High Sens < 3.5 (<3.5-17.0) ng/L ECG Data Attestation: I personally reviewed and interpreted this ECG as follows: Interpretation: Sinus bradycardia heart rate 48 beats per minute normal intervals normal axis no acute ST-T changes no acute ischemia Discharge Plan Discharge Clinical Impression: Hypertension Patient Disposition: Home, Self-Care Instructions: Hypertension (ED) Additional Instructions: Stop taking clonidine Increase the dose of lisinopril to 5 mg daily for now (you may need to be on 10 mg daily) Check blood pressure before taking the medicine and before going to bed It should be less than 140/90 If it is higher than 140/90 take extra 2.5 mg lisinopril and inform your PCP Salt restrictions as advised Prescriptions: No Action (DME) blood pressure monitor Kit See Rx Instructions .Route Qty: 1 0RF Rx Instructions: As directed lisinopril 2.5 mg tablet 2.5 mg PO DAILY Qty: 30 0RF clonidine HCl 0.1 mg tablet 0.1 mg PO BID Qty: 30 0RF
== END 2021-12-11 19:07 | disposition home or self-care (01) ==
PROVIDERS: Emergency Provider Internal Medicine; PCP Internal Medicine
DX: I10 Essential (primary) hypertension (principal)
CPT/HCPCS: 36415; 71045; 80048; 84484; 85025; 93005; 99283; 99284

== ENCOUNTER → 2022-01-25 09:10 | Outpatient (REF) | payer OTHER, SELFPAY ==
--- NOTE | 2022-01-25 09:15 | CA_ITS ---
Acquisition Time: 2022-01-25 10:36:27 Total Exercise Time: 00:04:40 Test Indications: R03.0 - Elevated blood-pressure Medications: Protocol: JOSE Max HR: 164 BPM 100% of Pred: 163 BPM Max BP: 160/080 mmHG Max Work Load: 6.5 METS Exercise stress test with exercise 4 min 40 sec of Jose protocol, with moderate shortness of breath, no chest discomfort, with isolated PVCs, with normotensive response to exercise, with EKG changes meeting criteria for ischemia, inferiorly, V3-V6 which corrects quickly in recovery. Artifact present on tracings which could be contributing to abnormal looking ST segments. Test reviewed with Dr Drake. Message sent to Sheila Lyle with report and recommendation for exercise nuclear stress test for further evaluation. Referred By: Jo Lyle Overread By: MARIA G AZEVEDO
--- NOTE | 2022-01-25 09:15 | CA_ITS ---
Transthoracic Echocardiogram Patient (Last, First, Middle): Sirisha Freedman, Gender: Female Date of : 1965 Age: 56 Procedure Date: 01/25/2022 Procedure Type: Transthoracic Echocardiogram Location: OP Height: 165.1 cm Weight: 72.58 kg BSA: 1.80 m2 Heart Rate: bpm BP: 132 / 70 mmHg Lockstitch Hemmer: ISHAN Referring MD: Jo VAZQUEZ Symptoms: R01.1 - Cardiac murmur, unspecified Study Quality: Good ECG Rhythm: Sinus Conclusions: - The left ventricular systolic function is normal. The calculated ejection fraction is 59% by biplane method. - No obvious valvular pathology seen on this study. - The inferior vena cava is dilated and collapses greater than 50% with inspiration. Findings Left Ventricle Normal left ventricular cavity size. There is normal left ventricular wall thickness. The left ventricular systolic function is normal. The calculated ejection fraction is 59% by biplane method. There is no evidence of regional wall motion abnormalities. Diastolic function is normal for age. Right Ventricle Normal right ventricular cavity size and systolic function. Atria Both atria are normal in size. Aortic Valve There is a normal trileaflet aortic valve. There is no aortic valve stenosis. There is no aortic valve regurgitation. Mitral Valve The mitral valve appears normal. There is no mitral valve regurgitation. There is no mitral valve stenosis. Pulmonic Valve The pulmonic valve was not well visualized. There is trace pulmonic valve regurgitation. Tricuspid Valve Normal tricuspid valve structure. There is trace tricuspid valve regurgitation. The pulmonary artery systolic pressure is normal. Great Vessels The aortic annulus, sinuses of valsalva, and asc aorta are normal in size. Venous The inferior vena cava is dilated and collapses greater than 50% with inspiration. Pericardium/Pleural There is no evidence of pericardial effusion. Prior Study Comparison No significant change compared to prior study dated: 02/10/2009. IVC not described in prior study. Recommendations, Care & Conclusions No obvious valvular pathology seen on this study. Measurements 2D Linear Measurements IVSd: 0.98 0.6-0.9/0.6-1.0 cm LVIDd: 4.06 3.9-5.3/4.2-5.9 cm LVIDd Index: 2.26 2.4-3.2/2.2-3.1 cm/m2 LVIDs: 2.71 2.0-3.6 cm LVPWd: 1.00 0.7-1.1 cm LA Diam: 4.10 2.7-3.8/3.0-4.0 cm LAIDs Index: 2.28 1.5-2.3 cm/m2 LV Mass: 159.56 67-162/88-224 g LV Mass Index: 88.65 43-95/49-115 g/m2 LVOT Diam: 2.00 3.0+(-)1.3 cm 2D Systolic Function EF 4C: 60.90 >55% EF 2C: 56.30 >55% EF BiP: 58.50 >55% Mitral Valve MV Pk E: 0.78 MV PK A: 0.62 MV Decel Time: 251.00 E/A: 1.30 E'Lateral: 9.03 E'Medial: 6.96 E/E' Med: 11.30 E/E' Lat: 8.70 PHT: 73.00 MVA PHT: 3.01 Decel Griggs: 3.13 Aortic Valve AoV Pk Neil: 1.58 AoV Mn Neil: 1.02 AoV VTI: 0.32 AoV Pk Grad: 10.00 Aov Mn Grad: 5.00 CRISTIAN Cont.VTI: 2.51 LVOT LVOT Pk Neil: 1.23 LVOT Mn Neil: 0.82 LVOT VTI: 0.26 LVOT Pk Grad: 6.00 LVOT Mn Grad: 3.00 LVOT Diam: 2.00 LVOT Area: 3.14 Diastolic Function MV Pk E: 0.78 MV Pk A: 0.62 E/A: 1.30 E'Medial: 6.96 E/E' Med: 11.30 E' Laterial: 9.03 E/E' Lat: 8.70 Right Ventricle TAPSE (mm): 20.30 TVS' Neil: 12.40 Tricuspid Valve TR Pk Neil: 2.02 TR Pk Grad: 16.00 RA Press: 8.00 RVSP: 24.00 Great Vessels Aorta Sinus of Valsalva: 3.13 2.0-3.[address] Ridge: 2.66 1.7-3.4 cm Ao Asc: 3.00 2.1-3.4 cm Ao Arch: 2.80 Updated in Other Vendor System with Status of Final Isreal Drake MD electronically signed on 01/27/2022 11:56:41 AM with status of Final
== END ==
LOC: HO.CARD 09:10
PROVIDERS: Visit Provider Nurse Practitioner Family
DX: R01.1 Cardiac murmur, unspecified (principal); R03.0 Elevated blood-pressure reading, without diagnosis of hypertension
CPT/HCPCS: 93017; 93306

== ENCOUNTER 2022-02-23 07:43 | Outpatient (REF) | payer OTHER, SELFPAY ==
[2022-02-23 08:03] LABS: MANUAL DIFF FLAG NO
[2022-02-23 08:07] LABS: Basophils Percent Auto 0.8 % (0-2); Eosinophils Absolute Auto 0.1 X10*3/uL (0.0-0.4); Eosinophils Percent Auto 3.5 % (0-4); Hematocrit 37.4 % (37.0-47.0); Hemoglobin 12.2 g/dl (12.0-16.0); Lymphocytes Absolute Auto 1.3 X10*3/uL (1.2-4.9); Lymphocytes Percent Auto 32.7 % (20-40); Mean Corpuscular HGB Conc 32.6 g/dl (31.0-35.0); Mean Corpuscular Hemoglobin 28.4 pg (27.0-33.0); Mean Corpuscular Volume 87.2 fL (80.0-98.0); Mean Platelet Volume 10.7 fL (9.4-12.3); Monocytes Absolute Auto 0.4 X10*3/uL (0.1-1.2); Neutrophils Absolute Auto 2.2 x10*3/uL (2.0-8.3); Platelet Count 186 X10*3/uL (160-400); Red Blood Count 4.29 X10*6/uL (4.20-5.50); Red Cell Distribution Width 13.2 % (11.0-16.0)
[2022-02-23 08:32] LABS: Alanine Aminotransferase 17 U/L (0-31); Albumin Level 4.1 g/dL (3.5-5.0); Alkaline Phosphatase 80 U/L (39-117); Anion Gap 7 (12-20); Aspartate Amino Transferase 17 U/L (5-31); Bilirubin Total 0.5 mg/dL (0.0-1.0); Blood Urea Nitrogen 16 mg/dL (9-16); Calcium 9.4 mg/dL (8.4-10.2); Carbon Dioxide 29 mmol/L (22-29); Chloride 107 mmol/L (96-108); Cholesterol 219 mg/dL; Estimated Glomerular Filt Rate 58; Glucose Fasting 95 mg/dL (60-99); HDL Cholesterol 61 mg/dL; Iron 63 mcg/dL (30-160); LDL Cholesterol Calculated 137 mg/dl; Percent Iron Saturation 23 % (15-50); Potassium 4.1 mmol/L (3.3-5.1); Sodium 139 mmol/L (135-145); Total Iron Binding Capacity 269 mcg/dL (228-428); Total Protein 6.7 g/dL (6.5-8.0); Triglycerides 107 mg/dL; Unsaturated Iron Binding 206 ug/dL
[2022-02-23 08:50] LABS: TSH reflex Free T4 1.87 uIU/mL (0.32-4.0)
== END 2022-02-23 07:44 | disposition home or self-care (01) ==
LOC: HO.LAB 07:43
PROVIDERS: Nurse Practitioner Family; PCP Internal Medicine; Visit Provider Internal Medicine
DX: Z00.00 Encounter for general adult medical examination without abnormal findings (principal); Z13.29 Encounter for screening for other suspected endocrine disorder; D64.9 Anemia, unspecified
CPT/HCPCS: 36415; 80053; 80061; 83540; 84443; 85025

== ENCOUNTER → 2022-03-27 14:55 | Outpatient (BNVA) | payer OTHER, SELFPAY | PROVIDERS: PCP Internal Medicine; Referring Provider Internal Medicine; Visit Provider Internal Medicine Cardiovascular Disease | DX: I10 Essential (primary) hypertension (principal) ==

== ENCOUNTER → 2022-05-01 10:49 | Outpatient (REF) | payer OTHER, SELFPAY ==
--- NOTE | 2022-05-01 10:52 | CA_ITS ---
Acquisition Time: 2022-05-01 11:15:30 Total Exercise Time: 00:05:45 Test Indications: ABNOMRAL ETT Medications: LISINOPRIL Protocol: ANITA Max HR: 173 BPM 106% of Pred: 163 BPM Max BP: 174/092 mmHG Max Work Load: 7.0 METS Exercise stress test with exercise 5 min 45 sec of Anita protocol, acheving 96% MPHR, with mild sob, no chest discomfort, without arrythmia, with normotensive response to exercise, with EKG changes meeting criteria for ischemia: horizontal ST depressions inferiorly and V3-V6 which correct very quickly in recovery. Echo images obtained by [employer] at rest and immediately post peak exercise. Definity contrast used. Test reviewed with Dr Mortensen. Referred By: Chaim Whittington Overread By: MARIA G AZEVEDO
== END ==
LOC: HO.CARD 10:49
PROVIDERS: Visit Provider Internal Medicine Cardiovascular Disease
DX: R94.39 Abnormal result of other cardiovascular function study (principal)
CPT/HCPCS: 93350; Q9957

== ENCOUNTER 2023-04-09 11:57 | Outpatient (REF) | payer OTHER, SELFPAY ==
--- NOTE | ~2023-04-09 | XR_ITS ---
EXAMINATION: XR KNEE, RIGHT CLINICAL INFORMATION: Pain in right knee Knee pain and edema after jumping accident COMPARISON: None available. TECHNIQUE: Four views of the right knee. FINDINGS: The bones are intact. No fracture. Small joint effusion. Alignment is anatomic. Joint spaces are well maintained. No abnormal soft tissue calcification. XR/XR knee RT 4V IMPRESSION: 1. No bony abnormality. 2. Small joint effusion.
== END 2023-04-09 11:58 | disposition home or self-care (01) ==
LOC: HO.HMGCX 11:57
PROVIDERS: PCP Internal Medicine; Visit Provider Physician Assistant
DX: M25.561 Pain in right knee (principal)
CPT/HCPCS: 73564

== ENCOUNTER 2023-07-22 11:00 | Outpatient (AMB) | payer OTHER, SELFPAY ==
[2023-07-22 11:05] VITALS: BP 154/90; BMI 28.0
--- NOTE | 2023-07-22 11:05 | MHC.PC.OV ---
Vital Signs 07/22/23 11:05 07/22/23 11:49 Height 5 ft 5 in Weight 168 lb BMI 28.0 BP 154/90 H 150/90 H Blood Pressure Location Lt brachial Lt brachial Position Sitting Sitting Intake Visit Reasons: depression Intake Note: Patient here for a follow up depression High Worker Required: No Accompanied by: Self / Same As Patient Allergies SEASONAL ALLERGIES Allergy (Mild, Uncoded 07/22/23 11:15) ITCHY EYES, RUNNY NOSE Medication List - Last Reconciled 07/22/23 by Sonia Arceo MD blood pressure monitor As directed lisinopril 5 mg PO DAILY 30 days Tobacco use date assessed: 12/18/22 Dental Screening Dental Screen Date: 07/22/23 Did you have a dental visit in the last 12 months?: Yes Did you have a dental problem in the last 6 months where you did not have access to dental care?: No Was dental information given to patient?: Patient has dentist HPI HPI Comments History of Present Illness Details This is a 57-year-old female with hypertension and mild major depression that comes today for follow-up on her conditions. She admits not been compliant with lisinopril and blood pressure will be recheck in 3 weeks by nurse navigator. Depression has been stable with good and bad days. Not requiring medication right now. No chest pain or shortness of breath. PFSH Medical History Pure hypercholesterolemia History of Lyme disease Physical exam Blood pressure elevated without history of HTN Surgical History H/O breast biopsy Hx of tubal ligation Family History Mother Pulmonary fibrosis Hypertension Father Hypertension Social History Housing: House Alcohol intake: never Patient Tobacco Use Status: Never used Tobacco e-Cigarette/Vaping Use: Never Used Second Hand Smoke Exposure: No service: No Current occupational status: employed Current occupational exposures/hazards: No Cognitive needs: No Hearing needs: No Vision needs: Yes (Glasses) Questionnaire Thrive Questionnaire Date Thrive assessed: 12/18/22 LAURO-7 AMB Questionnaire LAURO-7 Date LAURO - 7 assessed: 12/18/22 Source: Developed by Drs. Kiel Rueda, Rylee Caba, Regis Page and colleagues, with an educational mike from [email or web address]. Review of Systems Const All systems reviewed & are unremarkable except as noted in HPI and below Eyes Reports no additional complaints, Denies change in vision and Denies other visual disturbances Card Denies chest pain at rest, Denies chest pain with activity, Denies edema, Denies irregular heart rhythm, Denies claudication, Denies dyspnea, Denies dyspnea on exertion, Denies orthopnea, Denies paroxysmal nocturnal dyspnea and Denies slow heart rate Resp Denies cough, Denies dyspnea and Denies dyspnea on exertion GI Denies abdominal pain, Denies change in bowel habits, Denies excessive flatus, Denies nausea and Denies vomiting Denies urinary incontinence, Denies urinary hesitancy and Denies urinary urgency Musc Denies abnormal gait, Denies atrophy, Denies deformity and Denies limited range of motion Skin/Breast Denies bleeding lesions, Denies changing lesions and Denies rash Neuro Denies abnormal gait and Denies lack of coordination Physical exam (Primary Care) Vital Signs: Last Vital Signs BP 154/90 H 07/22/23 11:05 BMI result Body Mass Index 28.0 Tobacco/Smoking Status: Tobacco use Status Tobacco use date assessed 12/18/22 07/22/23 11:12 Patient Tobacco Use Status Never used Tobacco 07/22/23 11:12 e-Cigarette/Vaping Use Never Used 07/22/23 11:12 Thrive Assessment: Date of Thrive Assessment Date Thrive assessed 12/18/22 07/22/23 11:12 Eyes General: appearance normal, both eyes and all related structures Eyelids: Yes eyelids normal Conjunctivae: conjunctivae normal Neck Neck: Yes normal visual inspection and Yes supple Resp Effort & Inspection: normal respiratory effort Auscultation: clear to auscultation bilaterally Cardio Jugular venous distension: no JVD Rate: regular rate Rhythm: regular rhythm Heart sounds: S1 normal heart sound present and S2 normal heart sound present Extrem General: Yes full ROM Psych Appearance: grossly normal Assessment and Plan Assessment & Plan (1) Mild major depression: Code(s): F32.0 - Major depressive disorder, single episode, mild Plan: Was advised to let us know if counseling or medication is needed. (2) Hypertension: Code(s): I10 - Essential (primary) hypertension Plan: Be compliant with lisinopril. Blood pressure goal is equal or less than 130/80. Recheck blood pressure with nurse navigator in 3 weeks. Medications: Refilled lisinopril 5 mg PO DAILY 30 tabs 6RF 30 days I10 - Essential (primary) hypertension Coding Level of Care Code Est Pt Level 3 (50608) Diagnoses Mild major depression F32.0 Hypertension I10 Time Spent (min) 19
[2023-07-22 11:49] VITALS: BP 150/90
== END 2023-07-22 11:25 | disposition home or self-care (01) ==
PROVIDERS: PCP Internal Medicine; Visit Provider Internal Medicine
DX: F32.0 Major depressive disorder, single episode, mild (principal); I10 Essential (primary) hypertension
CPT/HCPCS: 99213

== ENCOUNTER 2023-11-28 09:26 | Outpatient (REF) | payer OTHER, SELFPAY ==
[2023-11-28 11:17] LABS: Alanine Aminotransferase 13 U/L (0-31); Albumin Level 4.6 g/dL (3.5-5.0); Alkaline Phosphatase 78 U/L (39-117); Anion Gap 12 (12-20); Aspartate Amino Transferase 18 U/L (5-31); Bilirubin Total 0.6 mg/dL (0.0-1.0); Blood Urea Nitrogen 11 mg/dL (9-16); Calcium 9.6 mg/dL (8.4-10.2); Carbon Dioxide 27 mmol/L (22-29); Chloride 106 mmol/L (96-108); Cholesterol 208 mg/dL (<200); Estimated Glomerular Filt Rate 52; Glucose Fasting 97 mg/dL (60-99); HDL Cholesterol 78 mg/dL (>40); LDL Cholesterol Calculated 110 mg/dL (<100); Potassium 3.9 mmol/L (3.3-5.1); Sodium 141 mmol/L (135-145); Total Protein 7.6 g/dL (6.5-8.0); Triglycerides 103 mg/dL (<150)
[2023-11-28 11:34] LABS: Vitamin D 25-OH Total 25.3 ng/mL (>30)
== END 2023-11-28 09:27 | disposition home or self-care (01) ==
LOC: HO.LAB 09:26
PROVIDERS: PCP Internal Medicine; Visit Provider Internal Medicine
DX: Z00.00 Encounter for general adult medical examination without abnormal findings (principal); E55.9 Vitamin D deficiency, unspecified; E78.5 Hyperlipidemia, unspecified
CPT/HCPCS: 36415; 80053; 80061; 82306

== ENCOUNTER 2024-11-02 17:31 | Outpatient (AMB) | payer BC, SELFPAY ==
[2024-11-02 17:33] VITALS: BP 120/86; PULSE 71; BMI 27.8
--- NOTE | 2024-11-02 17:33 | A.OFFPC_ITS ---
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 Accompanied by: Self / Same As Patient Allergies SEASONAL ALLERGIES Allergy (Mild, Uncoded 11/02/24 17:42) ITCHY EYES, RUNNY NOSE Medication List - Last Reconciled 11/02/24 by Sonia Arceo MD blood pressure monitor As directed lisinopril 5 mg PO DAILY 30 days Tobacco use date assessed: 11/02/24 Dental Screening Dental Screen Date: 11/02/24 Did you have a dental visit in the last 12 months?: Yes Did you have a dental problem in the last 6 months where you did not have access to dental care?: No Was dental information given to patient?: Patient has dentist HPI HPI Comments History of Present Illness Details The patient is a 59-year-old female presenting with an annual physical examination. The patient has a history of internal hemorrhoids noted during a colonoscopy performed in [address] Christina, which did not present any complications at that time. The patient is due for a repeat colonoscopy as ten years have lapsed. The patient also has a history of hypertension, for which she is prescribed lisinopril 5 mg. The patient reports that she is not currently taking the medication. Additionally, she has a history of seasonal allergies but denies any specific drug allergies. Her last mammography as of September 2024 indicated no abnormalities, and a Papanicolaou test (Pap smear) similarly showed normal results in 2022. - Colonoscopy due now as it's been 10 ye ars since the last one. - Mammography performed in September 2023 , results normal. - Papanicolaou test done in 2022, result s normal. - Recent laboratory tests indicated slig htly elevated cholesterol levels. - Discussed the need for regular lab wor k encompassing cholesterol, glucose, renal, and liver function tests. - Tdap done 2018 and next one should be 2028. [facility] Medical History (Updated 11/02/24 @ 17:53 by Sonia Arceo MD) Pure hypercholesterolemia History of Lyme disease Physical exam Blood pressure elevated without history of HTN Surgical History H/O breast biopsy Hx of tubal ligation Family History Mother Pulmonary fibrosis Hypertension Father Hypertension Social History Housing: House Alcohol intake: never Patient Tobacco Use Status: Never used Tobacco e-Cigarette/Vaping Use: Never Used Second Hand Smoke Exposure: No service: No Current occupational status: employed Current occupational exposures/hazards: No Cognitive needs: No Hearing needs: No Vision needs: Yes (Glasses) Questionnaire PHQ-9 Over the last 2 weeks, how often have you been bothered by any of the following problems? 1. Little interest or pleasure in doing things: not at all 2. Feeling down, depressed, or hopeless: not at all 3. Trouble falling or staying asleep, or sleeping too much: not at all 4. Feeling tired or having little energy: not at all 5. Poor appetite or overeating: not at all 6. Feeling bad about yourself - or that you are a failure or have let yourself or your family down: not at all 7. Trouble concentrating on things, such as reading the newspaper or watching television: not at all 8. Moving or speaking so slowly that other people could have noticed. Or the opposite - being so fidgety or restless that you have been moving around a lot more than usual: not at all 9. Thoughts that you would be better off or of hurting yourself in some way: not at all Total score: 0 Depression Screening Interpretation: Negative Depression Screening Done: Yes 15765 - PHQ-9 Billing: Yes Source: Developed by Drs. Kiel Rueda, Rylee Caba, Regis Page and colleagues, with an educational mike from [employer]. Thrive Questionnaire Date Thrive assessed: 11/02/24 I am a: Patient What is your living situation today?: I choose not to answer this question Within the past 12 months, did the food you bought not last and you didn't have the money to get more?: I choose not to answer this question Within the past 12 months, did you worry whether your food would run out before you got money to buy more?: I choose not to answer this question Do you have trouble paying for medicines?: I choose not to answer this question Do you have trouble getting transportation to medical appointments?: No Do you have trouble paying your heating and electricity bill?: I choose not to answer this question Do you have trouble taking care of your child, family member or friend?: I choose not to answer this question Do you have trouble with day-to-day activities such as bathing, preparing meals, shopping, managing finances, etc.?: I choose not to answer this question Are you currently unemployed and looking for a job?: No Are you interested in more education?: Yes Please select the resources that you would like help with: None Currently or been in a relationship where the following occur: I choose not to answer THRIVE Score: 0 AUDIT C Alcohol Use Questionnaire (AUDIT-C) 1. How often do you have a drink containing alcohol?: Never 3. How often do you have six or more drinks on one occasion?: Never Total Score: 0 Score Reviewed/Action Taken: No LAURO-7 AMB Questionnaire LAURO-7 Date LAURO - 7 assessed: 11/02/24 Feeling nervous, anxious, or on edge: 0 = Not at all Not being able to stop or control worryin = Not at all Worrying too much about different things: 0 = Not at all Trouble relaxin = Not at all Being so restless that it is hard to sit still: 0 = Not at all Becoming easily annoyed or irritable: 0 = Not at all Feeling afraid as if something awful might happen: 0 = Not at all Total LAURO-7 score (0-4 normal; 5-9 mild; 10-14 moderate; 15-21 severe): 0 Source: Developed by Drs. Kiel Rueda, Rylee Caba, Regis Page and colleagues, with an educational mike from [employer]. LAURO-7 Assessment Billing LAURO-7 Assessment Tool: LAURO-7 Assessment 98229 Review of Systems Const All systems reviewed & are unremarkable except as noted in HPI and below Card Denies chest pain at rest, Denies chest pain with activity, Denies edema, Denies irregular heart rhythm, Denies claudication, Denies dyspnea, Denies dyspnea on exertion, Denies orthopnea, Denies paroxysmal nocturnal dyspnea and Denies slow heart rate Resp Denies cough, Denies dyspnea and Denies dyspnea on exertion GI Denies abdominal pain, Denies change in bowel habits, Denies excessive flatus, Denies nausea and Denies vomiting Denies urinary incontinence, Denies urinary hesitancy and Denies urinary urgency Musc Denies abnormal gait, Denies atrophy, Denies deformity and Denies limited range of motion Skin/Breast Denies bleeding lesions, Denies changing lesions and Denies rash Neuro Denies abnormal gait, Denies behavioral changes and Denies lack of coordination Psych Denies behavioral changes Physical exam (Primary Care) Vital Signs: Last Vital Signs Pulse 71 11/02/24 17:33 BP 120/86 11/02/24 17:33 Oxygen Delivery Method Room Air 11/02/24 17:33 BMI result Body Mass Index 27.8 Tobacco/Smoking Status: Tobacco use Status Tobacco use date assessed 11/02/24 11/02/24 17:37 Patient Tobacco Use Status Never used Tobacco 11/02/24 17:37 e-Cigarette/Vaping Use Never Used 11/02/24 17:37 PHQ-9: PHQ-9 Score PHQ-9: Total score 0 11/02/24 17:45 Depression Screening Interpretation: Negative Thrive Assessment: Date of Thrive Assessment Date Thrive assessed 11/02/24 11/02/24 17:37 Currently or been in a relationship where the following occur: I choose not to a [facility] Head: Yes normal to inspection, Yes normocephalic and Yes atraumatic Ears: external ears normal Eyes General: appearance normal, both eyes and all related structures Eyelids: Yes eyelids normal Conjunctivae: conjunctivae normal Neck Neck: Yes normal visual inspection and Yes supple Resp Effort & Inspection: normal respiratory effort Auscultation: clear to auscultation bilaterally Cardio Jugular venous distension: no JVD Rate: regular rate Rhythm: regular rhythm Heart sounds: S1 normal heart sound present and S2 normal heart sound present GI Inspection: Yes normal to inspection Palpation (GI): Soft to palpation and nontender Auscultation: normal bowel sounds Skin General skin exam: no rashes or lesions noted Neuro General: no focal motor deficits Extrem General: Yes full ROM Psych Appearance: grossly normal Coding Level of Care Code Est Pt Prev Care 40-64y(56093) Diagnoses Physical exam Z00.00 Additional Codes LAURO-7 Assessment Billing - LAURO-7 Assessment Tool: LAURO-7 Assessment 78438 ([id number]) PHQ-9 - 77368 - PHQ-9 Billing: Yes ([id number]) Time Spent (min) 30 Assessment & Plan Assessment & Plan (1) Physical exam: Code(s): Z00.00 - Encounter for general adult medical examination without abnormal findings Category: Medical Plan - Continue monitoring blood pressure; assess the need for resumption of lisinopril. - Recommend completing a colonoscopy due since it has been 10 years. - Follow-up on cholesterol levels, consider lifestyle modifications or treatment if needed. - Ensure regular seasonal allergy management. Patient was informed and verbally consented to the use of an ambient scribe for clinic note documentation during this visit. I discussed that the patient is due for a colonoscopy since her last one was performed ten years ago. I emphasized the importance of resuming her lisinopril medication to manage hypertension effectively. I outlined the slight elevation in cholesterol levels and suggested potentially introducing lifestyle changes if necessary. We reviewed recent screening results, indicating normal mammography and Pap tests, underscoring current preventative health measures' effectiveness. I advised on conducting routine blood work within the next three months, and we reviewed necessary lab parameters such as liver and renal function. Finally, I discussed the management of seasonal allergies. Orders: Orders Comprehensive [place]. Panel Fast Today E78.00 - Pure hypercholesterolemia, unspecified Lipid Panel Today E78.5 - Hyperlipidemia, unspecified XR DEXA axial skeleton Today Z78.0 - Asymptomatic menopausal state Referrals Open Access Screening Colonoscopy Referral Z12.12 - Encounter for screening for malignant neoplasm of rectum Patient Instructions: - Schedule and complete your colonoscopy as soon as possible. - Consider resuming your prescribed lisinopril for blood pressure management. - Monitor your dietary habits to help manage cholesterol levels. - Conduct your recommended lab tests within the next three months. - Continue managing seasonal allergies with appropriate treatments.
== END 2024-11-02 17:53 | disposition home or self-care (01) ==
PROVIDERS: PCP Internal Medicine; Visit Provider Internal Medicine
DX: Z00.00 Encounter for general adult medical examination without abnormal findings (principal)

== ENCOUNTER → 2024-11-02 17:31 | Outpatient (BNVA) | payer BC, SELFPAY | PROVIDERS: PCP Internal Medicine; Visit Provider Internal Medicine | DX: Z00.00 Encounter for general adult medical examination without abnormal findings (principal); I10 Essential (primary) hypertension | CPT/HCPCS: 96127 ==

== ENCOUNTER 2024-12-31 08:33 | Outpatient (REF) | payer BC, SELFPAY ==
--- NOTE | ~2024-12-31 | MM_ITS ---
EXAMINATION: DXA BONE DENSITY AXIAL HISTORY: Estrogen deficiency TECHNIQUE: Ubisense Dual energy absorptiometry (DEXA) of the lumbar spine, total left hip, and femoral neck was performed. COMPARISON: There are no prior studies for comparison. FINDINGS: The bone mineral density of the lumbar spine is 1.116 with a T-score of -0.5, and a Z-score of 0.5. The bone mineral density of the left total hip is 1.191 with a T-score of 1.5, and a Z-score of 2.2. The bone mineral density of the left femoral neck is 1.022 with a T-score of -0.1, and a Z-score of 1.0. MM/XR DEXA axial skeleton IMPRESSION: Based on bone mineral density, and according to World Health Organization (WHO) criteria, the diagnosis is consistent with normal bone mineral density. All bone density values are in grams per centimeter squared (g/cm2). Statistically, 68% of repeat scans fall within 1 SD (+/- 0.010 g/cm2 for AP spine L1-L4) and 1 SD (+/- 0.012 g/cm2 for femur total) FRAX is a trademark of the [employer] [place] [facility] [employer], a World Health Organization (WHO) Collaborating Center. Electronically signed by: Kiel Magdaleno MD 01/01/2025 07:42 AM [facility]
== END 2024-12-31 08:34 | disposition home or self-care (01) ==
LOC: HO.MAMMO 08:33
PROVIDERS: PCP Internal Medicine; Visit Provider Internal Medicine
DX: Z13.820 Encounter for screening for osteoporosis (principal); Z78.0 Asymptomatic menopausal state
CPT/HCPCS: 77080

== ENCOUNTER → 2024-12-31 08:45 | Outpatient (BNV) | payer BC, SELFPAY | PROVIDERS: PCP Internal Medicine; Visit Provider Radiology Diagnostic Radiology | DX: E28.39 Other primary ovarian failure (principal) | CPT/HCPCS: 77080 ==

== ENCOUNTER 2025-01-25 09:15 | Outpatient (AMB) | payer BC, SELFPAY ==
--- NOTE | 2025-01-25 09:32 | AM.OFFWIN_ITS ---
Intake Vital Signs 01/25/25 09:37 Weight 163 lb BP 130/78 Blood Pressure Location Rt brachial Position Sitting Pulse 86 Pulse Source Pulse Oximeter Temp 98.7 F Temp Source Oral Pulse Oximetry (%) 99 Oxygen Delivery Method Room Air Intake Visit Reasons: EP Cough Intake Note: Patient here for cough that has been present for over 2 weeks. Patient Tobacco Use Status: Never used Tobacco Allergies SEASONAL ALLERGIES Allergy (Mild, Uncoded 01/25/25 09:46) ITCHY EYES, RUNNY NOSE Do you need a note to return to daycare/school/sports/work: Yes HPI HPI Comments History of Present Illness Details History - The patient is a 59-year-old female pr esenting with a cough, watery eyes, and a tickle in her throat. - These symptoms have been ongoing for o ana two weeks. - She has experienced an episode of chil ls two days ago but denies shortness of breath, wheezing, ear pain, sinus pain, or fevers. - The patient has seasonal allergies but does not take a daily allergy medication. Physical Exam General: Cooperative, healthy appearing, comfortable and no acute distress Orientation/consciousness: Patient oriented x3 Limitations: No limitations Head: Normal to inspection Ears: Hearing grossly normal bilaterally, external ears normal and TM's normal bilaterally Nose: Normal external nose present, Normal nares present and No nasal discharge present Face and sinus: Normal facial exam and Yes sinuses nontender Mouth: Normal oral and palatal mucosa present and moist mucous membranes Throat: Yes tonsils normal, Yes uvula midline. Posterior oropharynx erythema, no exudates Eyes: Appearance normal, both eyes and all related structures Neck: Normal visual inspection Respiratory: Normal respiratory effort, able to speak in complete sentences, Actively coughing, no respiratory distress, not tachypneic, no tripod positioning and no use of accessory muscles Skin: No rashes or lesions noted Neuro: Patient oriented x3 Extremities: Normal to inspection and Yes no clubbing, cyanosis or edema PFSH Medical History (Updated 01/25/25 @ 10:03 by Cherri Whitehead PA-C) Pure hypercholesterolemia History of Lyme disease Physical exam Blood pressure elevated without history of HTN Surgical History H/O breast biopsy Hx of tubal ligation Family History Mother Pulmonary fibrosis Hypertension Father Hypertension Social History Housing: House Alcohol intake: never Patient Tobacco Use Status: Never used Tobacco e-Cigarette/Vaping Use: Never Used Second Hand Smoke Exposure: No service: No Current occupational status: employed Current occupational exposures/hazards: No Cognitive needs: No Hearing needs: No Vision needs: Yes (Glasses) Review of Systems Const All systems reviewed & are unremarkable except as noted in HPI and below Physical Exam Vital Signs: Last Vital Signs Temp 98.7 F 01/25/25 09:37 Pulse 86 01/25/25 09:37 BP 130/78 01/25/25 09:37 Pulse Ox 99 01/25/25 09:37 Oxygen Delivery Method Room Air 01/25/25 09:37 Assessment & Plan Assessment & Plan (1) URI, acute: Code(s): J06.9 - Acute upper respiratory infection, unspecified Plan: VSS, pt well appearing and PE unremarkable. The patient's symptoms of cough, watery eyes, and throat irritation are likely due to seasonal allergic rhinitis. Initiating a daily antihistamine like loratadine is recommended to manage these symptoms. This is likely seasonal allergies however patient did not have cobblestoning in the back of her throat so I will treat for URI. I advised patient to try taking an allergy pill for 2 or 3 days and if that does not work, she should start taking the Z-Suraj. Patient was informed and verbally consented to the use of an ambient scribe for clinic note documentation during this visit Medications: New azithromycin For 250 mg dose pack: take 500 mg today (day 1), then 250 mg for 4 days (days 2-5) PO 6 tabs 0RF benzonatate 200 mg PO BEDTIME PRN 10 caps 0RF cough Coding Level of Care Code Est Pt Level 3 (23173) Diagnoses URI, acute J06.9
[2025-01-25 09:37] VITALS: BP 130/78; PULSE 86; TEMP 37.1; O2SAT 99
== END 2025-01-25 10:06 | disposition home or self-care (01) ==
PROVIDERS: PCP Internal Medicine; Visit Provider Physician Assistant
DX: J06.9 Acute upper respiratory infection, unspecified (principal)

== ENCOUNTER 2025-04-08 10:19 | Outpatient (AMB) | payer BC, SELFPAY ==
[2025-04-08 10:22] VITALS: BP 126/88; PULSE 71; TEMP 36.7; O2SAT 98; BMI 26.6
--- NOTE | 2025-04-08 10:22 | AM.OFFWIN_ITS ---
Intake Vital Signs 04/08/25 10:22 Height 5 ft 5 in Weight 160 lb BMI 26.6 BP 126/88 Blood Pressure Location Rt brachial Position Sitting Pulse 71 Pulse Source Pulse Oximeter Temp 98.1 F Temp Source Oral Pulse Oximetry (%) 98 Oxygen Delivery Method Room Air Intake Visit Reasons: EP Swollen RT knee Intake Note: Pt presents to the office today for c/o right knee swelling and pain with no known injury. Pt states she has a hx of lyme disease around 2008. Patient Tobacco Use Status: Never used Tobacco Allergies SEASONAL ALLERGIES Allergy (Mild, Uncoded 04/08/25 10:25) ITCHY EYES, RUNNY NOSE HPI HPI Comments History of Present Illness Details History of Present Illness - The patient is a 59-year-old female pr esenting with knee pain. She states that she has pain on the medial aspect of the right knee. - Pain was noted to originate the previo us night and was accompanied by swelling by morning. - The patient has no memory of an event that might have caused the current issue. - She denies trauma or fall. She denies numbness or tingling. - She denies redness or warmth. She destin es calf pain. Physical Exam General: Cooperative, healthy appearing, comfortable, no acute distress and well developed Respiratory: Normal respiratory effort and able to speak in complete sentences. Clear to auscultation bilaterally Cardiovascular: Regular rate and rhythm. Normal S1 and S2 Skin: No rashes or lesions noted Neuro: Patient oriented x3. Sensation is intact. Extremities: FROM the right knee, ankle, and foot. TTP of the right medial condyle and meniscus. No TTP of the posterior fossa, patella, lateral condyle or meniscus. No calf tenderness noted. Negative [place]man and anterior drawer test noted. Strength is 5/5 on the LE bilaterally. Ambulates with steady gait and a limp. Patient was informed and verbally consented to the use of an ambient scribe for clinic note documentation during this visit. [facility] Medical History (Updated 01/25/25 @ 10:03 by Cherri Whitehead PA-C) Pure hypercholesterolemia History of Lyme disease Physical exam Blood pressure elevated without history of HTN Surgical History H/O breast biopsy Hx of tubal ligation Family History Mother Pulmonary fibrosis Hypertension Father Hypertension Social History Housing: House Alcohol intake: never Patient Tobacco Use Status: Never used Tobacco e-Cigarette/Vaping Use: Never Used Second Hand Smoke Exposure: No service: No Current occupational status: employed Current occupational exposures/hazards: No Cognitive needs: No Hearing needs: No Vision needs: Yes (Glasses) Review of Systems Const All systems reviewed & are unremarkable except as noted in HPI and below Physical Exam Vital Signs: Last Vital Signs Temp 98.1 F 04/08/25 10:22 Pulse 71 04/08/25 10:22 BP 126/88 04/08/25 10:22 Pulse Ox 98 04/08/25 10:22 Oxygen Delivery Method Room Air 04/08/25 10:22 BMI result Body Mass Index 26.6 Assessment & Plan Assessment & Plan (1) Right knee pain: Code(s): M25.561 - Pain in right knee Qualifiers: Chronicity: acute Qualified Code(s): M25.561 - Pain in right knee Plan Most likely strain vs arthritis vs tendonitis Plan - Order an x-ray to investigate the cause of localized pain. - Naproxen as needed for pain - rest, ice, and elevation of the right leg - knee wrap to the knee for support - Advise follow-up in a few days if symptoms persist or worsen, with the possibility of referral to orthopedics. Medications: New naproxen 500 mg PO Q12H PRN 20 tabs 0RF pain naproxen 500 mg PO Q12H 7 days PRN 20 tabs 0RF pain Coding Level of Care Code Est Pt Level 4 (88679) Diagnoses Acute pain of right knee M25.561 Chronicity: acute
== END 2025-04-08 11:59 | disposition home or self-care (01) ==
PROVIDERS: PCP Internal Medicine; Visit Provider Physician Assistant Medical
DX: M25.561 Pain in right knee (principal)

== ENCOUNTER 2025-04-08 10:19 | Outpatient (REF) | payer BC, SELFPAY ==
--- NOTE | ~2025-04-08 | XR_ITS ---
EXAMINATION: XR KNEE, RIGHT CLINICAL INFORMATION: M25.569 - Pain in unspecified knee COMPARISON: None available. TECHNIQUE: Four views of the right knee. FINDINGS: There is mild narrowing of the medial joint space. There is no soft tissue calcification. There are small marginal osteophytes involving the medial joint line. There is a joint effusion. There is a focal lucency in the central anterior tibial plateau with geographic margins and incomplete thin sclerotic border likely representing an intraosseous ganglion or other degenerative cyst. XR/XR knee RT 4V IMPRESSION: Mild osteoarthritis with a joint effusion. Electronically signed by: Roney Watts MD 04/08/2025 11:51 AM EDT
== END 2025-04-08 10:20 | disposition home or self-care (01) ==
LOC: HO.HMGCX 10:19
PROVIDERS: PCP Internal Medicine; Visit Provider Physician Assistant Medical
DX: S86.911A Strain of unspecified muscle(s) and tendon(s) at lower leg level, right leg, initial encounter (principal); X58.XXXA Exposure to other specified factors, initial encounter; Y93.9 Activity, unspecified; Y92.9 Unspecified place or not applicable; Y99.9 Unspecified external cause status
CPT/HCPCS: 73564

== ENCOUNTER → 2025-04-08 11:21 | Outpatient (BNV) | payer BC, SELFPAY | PROVIDERS: PCP Internal Medicine; Visit Provider Radiology Diagnostic Radiology | DX: M25.461 Effusion, right knee (principal) | CPT/HCPCS: 73564 ==

== ENCOUNTER 2025-05-05 16:56 | Outpatient (AMB) | payer BC, SELFPAY ==
--- NOTE | 2025-05-05 17:11 | A.OFFPC_ITS ---
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 She has a history of hypertension, which she is currently managing through dietary changes rather than medication. Her blood pressure today is recorded at 136/82 mmHg, which is within normal limits. The patient does not currently take any antihypertensive medications and has no known drug allergies. She has a home blood pressure monitor but does not regularly measure her blood pressure. The plan is to begin monitoring her blood pressure at home at least once a week and to continue following a low-salt diet. [facility] Medical History Pure hypercholesterolemia History of Lyme disease Physical exam Blood pressure elevated without history of HTN Surgical History H/O breast biopsy Hx of tubal ligation Family History Mother Pulmonary fibrosis Hypertension Father Hypertension Social History (Updated 05/05/25 @ 17:30 by Sonia Arceo MD) Housing: House Alcohol intake: current Alcohol intake frequency: holidays/special occasions only Alcohol type: hard liquor Patient Tobacco Use Status: Never used Tobacco e-Cigarette/Vaping Use: Never Used Second Hand Smoke Exposure: No service: No Current occupational status: employed Current occupational exposures/hazards: No Cognitive needs: No Hearing needs: No Vision needs: Yes (Glasses) Questionnaire Thrive Questionnaire Date Thrive assessed: 11/02/24 I am a: Patient What is your living situation today?: I choose not to answer this question Within the past 12 months, did the food you bought not last and you didn't have the money to get more?: I choose not to answer this question Within the past 12 months, did you worry whether your food would run out before you got money to buy more?: I choose not to answer this question Do you have trouble paying for medicines?: I choose not to answer this question Do you have trouble getting transportation to medical appointments?: No Do you have trouble paying your heating and electricity bill?: I choose not to answer this question Do you have trouble taking care of your child, family member or friend?: I choose not to answer this question Do you have trouble with day-to-day activities such as bathing, preparing meals, shopping, managing finances, etc.?: I choose not to answer this question Are you currently unemployed and looking for a job?: No Are you interested in more education?: Yes Please select the resources that you would like help with: None Currently or been in a relationship where the following occur: I choose not to answer THRIVE Score: 0 AUDIT C Alcohol Use Questionnaire (AUDIT-C) 1. How often do you have a drink containing alcohol?: Monthly or less 2. How many drinks containing alcohol do you have on a typical day when you are drinking?: 1 or 2 3. How often do you have six or more drinks on one occasion?: Never Total Score: 1 Score Reviewed/Action Taken: No LAURO-7 AMB Questionnaire LAURO-7 Date LAURO - 7 assessed: 11/02/24 Source: Developed by Drs. Kiel Rueda, Rylee Caba, Regis Page and colleagues, with an educational mike from [employer]. Review of Systems Const All systems reviewed & are unremarkable except as noted in HPI and below Card Denies chest pain at rest, Denies chest pain with activity, Denies edema, Denies irregular heart rhythm, Denies claudication, Denies dyspnea, Denies dyspnea on exertion, Denies orthopnea, Denies paroxysmal nocturnal dyspnea and Denies slow heart rate Resp Denies cough, Denies dyspnea and Denies dyspnea on exertion GI Denies abdominal pain, Denies change in bowel habits, Denies excessive flatus, Denies nausea and Denies vomiting Denies urinary incontinence, Denies urinary hesitancy and Denies urinary urgency Musc Denies atrophy, Denies deformity and Denies limited range of motion Skin/Breast Denies bleeding lesions, Denies changing lesions and Denies rash Physical exam (Primary Care) Vital Signs: Last Vital Signs BP 136/82 05/05/25 17:12 BMI result Body Mass Index 26.8 Tobacco/Smoking Status: Tobacco use Status Tobacco use date assessed 11/02/24 05/05/25 17:17 Patient Tobacco Use Status Never used Tobacco 05/05/25 17:30 e-Cigarette/Vaping Use Never Used 05/05/25 17:30 Thrive Assessment: Date of Thrive Assessment Date Thrive assessed 11/02/24 05/05/25 17:17 Currently or been in a relationship where the following occur: I choose not to answer Resp Effort & Inspection: normal respiratory effort Auscultation: clear to auscultation bilaterally Cardio Jugular venous distension: no JVD Rate: regular rate Rhythm: regular rhythm Heart sounds: S1 normal heart sound present and S2 normal heart sound present Extrem General: Yes full ROM Coding Level of Care Code Est Pt Level 3 (62415) Complex EM visit Add On G2211 Diagnoses Hypertension I10 Time Spent (min) 19 Assessment & Plan Assessment & Plan (1) Hypertension: Code(s): I10 - Essential (primary) hypertension Category: Medical Plan The patient will continue to manage her hypertension through dietary modifications, specifically by adhering to a low-salt diet. She is advised to begin monitoring her blood pressure at home at least once a week to ensure it remains within normal limits. Currently, there is no need for antihypertensive medication as her blood pressure is well-controlled with lifestyle changes. I discussed with the patient that her blood pressure is currently well- controlled with dietary changes, and there is no need for medication at this time. I advised her to start monitoring her blood pressure at home weekly and to maintain a low-salt diet to continue managing her hypertension effectively. Patient Instructions: - Monitor your blood pressure at home at least once a week. - Continue following a low-salt diet to help control your blood pressure.
[2025-05-05 17:12] VITALS: BP 136/82; BMI 26.8
== END 2025-05-05 17:38 | disposition home or self-care (01) ==
LOC: HO.HMCH 16:57
PROVIDERS: PCP Internal Medicine; Visit Provider Internal Medicine
DX: I10 Essential (primary) hypertension (principal)

== ENCOUNTER 2025-07-13 10:35 | Outpatient (REF) | payer BC, SELFPAY ==
--- NOTE | ~2025-07-13 | XR_ITS ---
EXAMINATION: XR KNEE 1-2 VIEWS RIGHT HISTORY: M25.569 - Pain in unspecified knee COMPARISON: Comparison is made with the prior examination dated 04/08/2025. FINDINGS: Standing AP views of both knees and an additional sunrise patellar view of the right knee are submitted. Osseous mineralization is normal. There is no fracture or dislocation. There is mild narrowing of the medial compartment. The soft tissues are unremarkable. XR/XR knee RT 2V IMPRESSION: Mild narrowing of the medial compartment of the right knee. Electronically signed by: Kiel Magdaleno MD 07/13/2025 02:08 PM EDT
== END 2025-07-13 10:36 | disposition home or self-care (01) ==
LOC: HO.HOSX 10:35
PROVIDERS: Visit Provider Physician Assistant
DX: G89.29 Other chronic pain (principal); M17.11 Unilateral primary osteoarthritis, right knee; M25.461 Effusion, right knee
CPT/HCPCS: 73560

== ENCOUNTER 2025-07-13 13:53 | Outpatient (AMB) | payer BC, SELFPAY ==
--- NOTE | 2025-07-13 14:03 | A.OFFVIS_ITS ---
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 Patient reports off and on pain since summer. History of lyme disease and she noticed her knee very swollen. She mentions that her pain is on the medial aspect of the knee. Patient notices that her pain is worse when she is moving her leg side to side and going up and down the stairs. She has tried lidocaine patches/topical cream with relief. IMPRESSION: Mild osteoarthritis with a joint effusion. 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 Freedman is a 59 year old female who presents today for evaluation of chronic right knee pain. She reports that the pain waxes and wanes. She denies any injury to the area. However, she does have a history of Lyme disease in which fluid was aspirated from the right knee and analyze resulting in her diagnosis. She reports that she has swelling that waxes and wanes based off of activity. Her pain is mostly located along the medial aspect of the knee. Her pain is worse when going up and down stairs, squatting and kneeling. She has tried lidocaine patches and topical pain cream which has worked for her in the past. She is currently not experiencing any pain today. [facility] Medical History Pure hypercholesterolemia History of Lyme disease Physical exam Blood pressure elevated without history of HTN Surgical History H/O breast biopsy Hx of tubal ligation Family History Mother Pulmonary fibrosis Hypertension Father Hypertension Social History (Updated 07/13/25 @ 14:09 by Arianna Winslow) Housing: House Alcohol intake: current Alcohol intake frequency: holidays/special occasions only Alcohol type: hard liquor Patient Tobacco Use Status: Never used Tobacco e-Cigarette/Vaping Use: Never Used Second Hand Smoke Exposure: No service: No Current occupational status: employed 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 No ecchymosis, erythema, or joint effusion. Slight tenderness to palpation medial joint line. Full knee extension and flexion. Negative Keara's. Negative anterior drawer. NVI. Psych Appearance: grossly normal Mental Status: mental status grossly normal Attitude: cooperative Assessment & Plan Assessment & Plan (1) Osteoarthritis of right knee: Code(s): M17.11 - Unilateral primary osteoarthritis, right knee Category: Medical Plan Ms. Freedman is a 59 year old female who presents today for evaluation of chronic right knee pain. She reports that the pain waxes and wanes. She denies any injury to the area. However, she does have a history of Lyme disease in which fluid was aspirated from the right knee and analyze resulting in her diagnosis. She reports that she has swelling that waxes and wanes based off of activity. Her pain is mostly located along the medial aspect of the knee. Her pain is worse when going up and down stairs, squatting and kneeling. She has tried lidocaine patches and topical pain cream which has worked for her in the past. She is currently not experiencing any pain today. While in the office today, the patient is not experiencing any pain. Educated the patient on conservative treatment options including but not limited to oral anti-inflammatories, knee bracing, physical therapy, corticosteroid injections and gel injections. Patient states that she has a knee brace at home that she uses as needed. Physical therapy and injections were deferred at this time as she is not experiencing pain. She has oral naproxen that she will take intermittently at home. No additional orthopedic intervention warranted at to day's visit. She will follow up PRN, sooner if needed. X-rays of the right knee which were obtained while in the office today and were reviewed by me, Sarah Torrez PA-C, revealed right knee osteoarthritis. Orders: Orders XR knee RT 2V Today M25.569 - Pain in unspecified knee Coding Level of Care Code New Pt Level 3 (21655) Diagnoses Osteoarthritis of right knee M17.11
[2025-07-13 14:10] VITALS: BMI 26.8
== END 2025-07-13 15:01 | disposition home or self-care (01) ==
LOC: HO.HOS 13:54
PROVIDERS: PCP Internal Medicine; Visit Provider Physician Assistant
DX: M17.11 Unilateral primary osteoarthritis, right knee (principal)
CPT/HCPCS: 99203

== ENCOUNTER → 2025-07-13 13:56 | Outpatient (BNV) | payer BC, SELFPAY | PROVIDERS: Visit Provider Radiology Diagnostic Radiology | DX: M17.11 Unilateral primary osteoarthritis, right knee (principal) | CPT/HCPCS: 73560 ==